=== PATIENT | female | born 1980 | race Caucasian/White ===

== ENCOUNTER 2020-12-23 07:42 | Emergency (ER) | payer MEDICAID, OTHER ==
[~2020-12-23] VITALS: Ht 165.1 cm; Wt 78.0 kg
[2020-12-23 11:21] VITALS: BP 138/68
== END 2020-12-23 11:23 | disposition home or self-care (01) ==
LOC: EDBD 07:42 → ER 07:42
DX: M79.10 Myalgia, unspecified site (principal); M54.2 Cervicalgia; M25.511 Pain in right shoulder; M25.512 Pain in left shoulder; R07.89 Other chest pain; M79.641 Pain in right hand; V29.9XXA Motorcycle rider (driver) (passenger) injured in unspecified traffic accident, initial encounter; Y93.89 Activity, other specified; Y92.89 Other specified places as the place of occurrence of the external cause; Y99.8 Other external cause status
CPT/HCPCS: 71260; 72125; 74177